=== PATIENT | female | born 1975 | race Caucasian/White ===

== ENCOUNTER → 2017-01-14 | Outpatient (REF) | payer OTHER | LOC: M LAB REF 13:35 | PROVIDERS: ATTEND Nurse Practitioner Family | DX: E03.9 Hypothyroidism, unspecified (principal); E55.9 Vitamin D deficiency, unspecified ==

== ENCOUNTER 2017-03-24 13:19 | Emergency (ER) | payer OTHER ==
[~2017-03-24] VITALS: Ht 160 cm; Wt 74.8 kg
[2017-03-24] MEDS ORDERED: NIFE1TAB PO (13:31)
[2017-03-24] MEDS ORDERED: ZYRT10TA2 PO (13:31)
[2017-03-24] MEDS ORDERED: VITA100066 PO (13:31)
[2017-03-24] MEDS ORDERED: LEVO10VL IM (13:31)
--- NOTE | 2017-03-24 14:29 | REP ---
Chest two views HISTORY: Cough Comparison: None The lungs are clear. The heart is normal in size. The pulmonary vasculature is normal in appearance. The bony structure is intact. IMPRESSION: No acute disease. Signed by Petar Connolly MD 03/24/2017 02:20 P
[2017-03-24 14:31] LABS: BASO % 0.6 % (0.0-1.0); EOS # 0.2 K/mm3 (0.0-0.50); EOS % 1.8 % (0.0-3.0); LARGE UNSTAINED CELL # 0.2 K/mm3 (0.0-0.4); LARGE UNSTAINED CELL % 1.8 % (0.0-4.0); LYMPH # 3.5 K/mm3 (1.5-4.5); LYMPH % 40.7 % (24.0-44.0); MEAN CORPUSCULAR VOLUME 91.4 fl (80.0-96.0); MONO # 0.4 K/mm3 (0.0-0.8); MONO % 4.5 % (0.0-5.0); NEUTROPHILS # 4.4 K/mm3 (1.8-7.7); NEUTROPHILS % 50.6 % (36.0-66.0); PLATELET COUNT, AUTOMATED 251 k/mm3 (150-450); RED CELL DISTRIBUTION WIDTH 12.6 % (11.5-14.5); WHITE BLOOD COUNT 8.7 K/mm3 (4.0-10.0)
[2017-03-24 14:38] LABS: INR 0.94
[2017-03-24 15:07] LABS: ALBUMIN/GLOBULIN RATIO 1.21 (1.00-1.93); ALKALINE PHOSPHATASE 66 U/L (45-117); ALT/SGPT 29 U/L (12-78); ANION GAP 6 MEQ/L (8-16); AST/SGOT 19 U/L (15-37); BILIRUBIN,DIRECT < 0.1 MG/DL (0.0-0.2); BILIRUBIN,TOTAL 0.3 MG/DL (0.2-1.0); BLOOD UREA NITROGEN 15 MG/DL (7-18); CALCIUM LEVEL 8.4 MG/DL (8.5-10.1); CARBON DIOXIDE LEVEL 31 MEQ/L (21-32); CHLORIDE LEVEL 102 MEQ/L (98-107); CREATININE FOR GFR 0.74 MG/DL (0.55-1.02); GLOMERULAR FILTRATION RATE > 60.0 (>58); GLUCOSE, FASTING 85 MG/DL (70-105); POTASSIUM SERUM 3.9 MEQ/L (3.5-5.1); SODIUM LEVEL 139 MEQ/L (136-145); THYROXINE (T4) 10.3 UG/DL (4.5-12.0); TOTAL PROTEIN 7.3 GM/DL (6.4-8.2)
[2017-03-24 15:42] VITALS: BP 119/76
--- NOTE | 2017-03-25 09:17 | ECGEPIP ---
Stationary ECG Study [facility] - ED Test Date: 2017-03-24 Pat Name: ISAAC SHOOK Department: Room: - Gender: F [employer] Level [employer]: : 1975 Requested By: Maco Capellan Order Number: [id number] Reading MD: Klaudia Bales Measurements Intervals [place] Rate: 55 P: 33 IN: 148 QRS: 43 QRSD: 75 T: 3 QT: 416 QTc: 400 Interpretive Statements SINUS BRADYCARDIA WITH SINUS ARRHYTHMIA NSTTW ABNORMALITY Electronically Signed On 03-25-2017 9:17:25 EDT by Klaudia Bales
== END 2017-03-24 15:43 | disposition home or self-care (01) ==
LOC: M ED 15:24
DX: R06.02 Shortness of breath (principal); R07.89 Other chest pain; Z87.891 Personal history of nicotine dependence; Z79.899 Other long term (current) drug therapy

== ENCOUNTER → 2017-11-08 | Outpatient (CLI) | payer OTHER ==
[~2017-11-08] MED LIST: LEVO10VL IM; NIFE1TAB PO; VITA100066 PO; ZYRT10TA2 PO
== END ==
LOC: M LAB 11:52
PROVIDERS: ATTEND Internal Medicine Endocrinology, Diabetes & Metabolism
DX: E03.9 Hypothyroidism, unspecified (principal)

== ENCOUNTER → 2018-02-14 | Outpatient (CLI) | payer OTHER | LOC: M LAB 07:28 | DX: E03.9 Hypothyroidism, unspecified (principal) | CPT/HCPCS: 84443 ==

== ENCOUNTER → 2018-09-23 | Outpatient (CLI) | payer OTHER | LOC: M LAB 07:22 | DX: E03.9 Hypothyroidism, unspecified (principal) | CPT/HCPCS: 84443 ==

== ENCOUNTER → 2020-03-13 | Outpatient (CLI) | payer OTHER ==
[~2020-03-13] MED LIST changes: -NIFE1TAB PO; +NIFE90TA20 PO; +ZYRT10CA5 PO; -ZYRT10TA2 PO
== END ==
LOC: M LABSMTC 11:05
PROVIDERS: ATTEND Family Medicine
DX: Z11.59 Encounter for screening for other viral diseases (principal); Z20.828 Contact with and (suspected) exposure to other viral communicable diseases

== ENCOUNTER → 2020-06-10 | Outpatient (CLI) | payer OTHER | LOC: M LABSMTC 12:20 | PROVIDERS: ATTEND Family Medicine | DX: Z11.59 Encounter for screening for other viral diseases (principal) | CPT/HCPCS: C9803; U0003 ==

== ENCOUNTER → 2020-07-02 | Outpatient (CLI) | payer OTHER ==
[2020-08-31 11:23] LABS: FREE T4 1.09 NG/DL (0.76-1.46); THYROID STIMULATING HORMONE 0.765 uIU/ML (0.358-3.740); TOTAL T3 94.4 NG/DL (60.0-181.0)
== END ==
LOC: M LAB 08:28
PROVIDERS: ATTEND Internal Medicine Endocrinology, Diabetes & Metabolism
DX: E03.9 Hypothyroidism, unspecified (principal)

== ENCOUNTER → 2020-07-16 | Outpatient (REF) | payer OTHER, MEDICAID ==
[2020-09-03 12:03] LABS: BASO # 0.1 10^3/uL (0.0-0.2); BASO % 0.6 % (0.0-1.0); EOS # 0.1 10^3/uL (0.0-0.5); EOS % 1.6 % (0.0-3.0); HEMATOCRIT 40.8 % (36.0-47.0); HEMOGLOBIN 13.5 g/dl (12.0-15.5); LYMPH # 3.1 10^3/uL (1.5-5.0); MEAN CORPUSCULAR HEMOGLOBIN 30.1 pg (27.0-33.0); MEAN CORPUSCULAR HGB CONC 33.1 g/dl (32.0-36.5); MEAN CORPUSCULAR VOLUME 91.1 fl (80.0-96.0); MONO # 0.7 10^3/uL (0.0-0.8); MONO % 8.6 % (0.0-5.0); NEUTROPHILS % 49.9 % (36.0-66.0); PLATELET COUNT, AUTOMATED 279 10^3/uL (150-450); RED BLOOD COUNT 4.48 10^6/uL (4.00-5.40)
[2020-09-03 12:04] LABS: ERYTHROCYTE SEDIMENTATION RATE 7 mm/hr (0-20)
[2020-10-06 09:05] LABS: ALBUMIN 3.8 GM/DL (3.2-5.2); ALT/SGPT 27 U/L (12-78); BILIRUBIN,TOTAL 0.2 MG/DL (0.2-1.0); BLOOD UREA NITROGEN 15 MG/DL (7-18); CALCIUM LEVEL 8.8 MG/DL (8.5-10.1); CARBON DIOXIDE LEVEL 28 MEQ/L (21-32); CHLORIDE LEVEL 105 MEQ/L (98-107); CREATININE FOR GFR 0.73 MG/DL (0.55-1.30); GLOMERULAR FILTRATION RATE > 60.0 (>58); GLUCOSE, FASTING 79 MG/DL (70-100); POTASSIUM SERUM 4.1 MEQ/L (3.5-5.1); SODIUM LEVEL 138 MEQ/L (136-145); TOTAL PROTEIN 7.2 GM/DL (6.4-8.2)
== END ==
LOC: M LAB REF 10:30
PROVIDERS: ATTEND Family Medicine Addiction Medicine
DX: M60.819 Other myositis, unspecified shoulder (principal)

== ENCOUNTER → 2021-01-30 | Outpatient (REF) | payer OTHER, MEDICAID ==
[2021-01-30 16:59] LABS: BASO # 0.1 10^3/uL (0.0-0.2); BASO % 0.7 % (0.0-1.0); EOS # 0.1 10^3/uL (0.0-0.5); EOS % 0.9 % (0.0-3.0); HEMATOCRIT 42.8 % (36.0-47.0); HEMOGLOBIN 13.5 g/dl (12.0-15.5); LYMPH # 3.2 10^3/uL (1.5-5.0); LYMPH % 35.5 % (24.0-44.0); MEAN CORPUSCULAR HEMOGLOBIN 28.8 pg (27.0-33.0); MEAN CORPUSCULAR HGB CONC 31.5 g/dl (32.0-36.5); MEAN CORPUSCULAR VOLUME 91.3 fl (80.0-96.0); MONO # 0.6 10^3/uL (0.0-0.8); MONO % 6.5 % (2.0-8.0); PLATELET COUNT, AUTOMATED 313 10^3/uL (150-450); RED BLOOD COUNT 4.69 10^6/uL (4.00-5.40); WHITE BLOOD COUNT 8.9 10^3/uL (4.0-10.0)
[2021-01-30 17:37] LABS: ERYTHROCYTE SEDIMENTATION RATE 8 mm/hr (0-20)
[2021-01-30 18:09] LABS: ALT/SGPT 46 U/L (12-78); BILIRUBIN,TOTAL 0.2 MG/DL (0.2-1.0); BLOOD UREA NITROGEN 12 MG/DL (7-18); C REACTIVE PROTEIN QUANTITATIV 0.59 MG/DL (0.00-0.30); CALCIUM LEVEL 8.9 MG/DL (8.5-10.1); CARBON DIOXIDE LEVEL 28 MEQ/L (21-32); CHLORIDE LEVEL 105 MEQ/L (98-107); CREATININE FOR GFR 0.78 MG/DL (0.55-1.30); GLOMERULAR FILTRATION RATE > 60.0 (>58); GLUCOSE, FASTING 73 MG/DL (70-100); POTASSIUM SERUM 4.3 MEQ/L (3.5-5.1); SODIUM LEVEL 140 MEQ/L (136-145); THYROID STIMULATING HORMONE 0.717 uIU/ML (0.358-3.740); TOTAL PROTEIN 7.1 GM/DL (6.4-8.2)
== END ==
LOC: M LAB REF 16:22
PROVIDERS: ATTEND Family Medicine Addiction Medicine
DX: M25.50 Pain in unspecified joint (principal); E03.9 Hypothyroidism, unspecified

== ENCOUNTER → 2021-03-24 | Outpatient (REF) | payer OTHER, MEDICAID | LOC: M LAB REF 11:34 | PROVIDERS: ATTEND Family Medicine Addiction Medicine | DX: Z12.4 Encounter for screening for malignant neoplasm of cervix (principal) ==

== ENCOUNTER → 2021-03-24 | Outpatient (REF) | payer OTHER, MEDICAID ==
[2021-03-24 17:49] LABS: C REACTIVE PROTEIN QUANTITATIV < 0.30 MG/DL (0.00-0.30); RHEUMATOID FACTOR QUANT < 10.0 IU/ML (<15.0)
[2021-03-26 13:08] LABS: ANTINUCLEAR ANTIBODIES DIRECT Negative (Negative)
== END ==
LOC: M LAB REF 16:16
PROVIDERS: ATTEND Family Medicine Addiction Medicine
DX: M25.50 Pain in unspecified joint (principal)

== ENCOUNTER → 2021-05-20 | Outpatient (CLI) | payer MEDICAID, OTHER ==
--- NOTE | 2021-05-20 10:48 | REP ---
INDICATION: PAIN IN RIGHT KNEE COMPARISON: None TECHNIQUE: Five views FINDINGS: There is slight tricompartmental marginal osteophytosis with mild medial compartmental narrowing. There is no acute fracture, dislocation, or subluxation. IMPRESSION: Early degenerative changes as described above. <Electronically signed by Felix Arteaga > 05/20/21 1040
== END ==
LOC: M RAD 10:01
PROVIDERS: ATTEND Family Medicine Addiction Medicine
DX: M25.561 Pain in right knee (principal)

== ENCOUNTER 2022-06-09 06:10 | Observation (INO) | payer OTHER ==
[~2022-06-09] VITALS: Ht 160 cm; Wt 71.2 kg
[~2022-06-09 06:10] MED LIST changes: +ALBU2.5V10 INH; +CETI-24; +DRIS50003 PO; +LIOT5TAB6; +PARO20TA3; +SYNT125T; +WELLTAB40; +ceFAZolin SOD 2 GM in IV 1 EA IV ONE
[2022-06-09] MEDS ORDERED: LR 1,000 ML IV SCH ×2 (06:45→11:55)
[2022-06-09] MEDS ORDERED: ROCURONIUM BROMIDE 50 MG/5 ML VIAL As Ordered ONE ×3 (07:13→10:42)
[2022-06-09] MEDS ORDERED: BUPIVACAINE LIPOSOME/PF 1.3% 20ML VIAL (13.3MG/ML)(EXPAREL) As Ordered ONE (07:13)
[2022-06-09] MEDS ORDERED: fentaNYL 250 MCG/5 ML INJECTION As Ordered ONE (07:13)
[2022-06-09] MEDS ORDERED: LIDOCAINE 2% INJ 100 MG/5 ML SYRINGE As Ordered ONE (07:13)
[2022-06-09] MEDS ORDERED: MIDAZOLAM INJ 2MG/2ML VIAL (J2250 PER 1MG) As Ordered ONE (07:13)
[2022-06-09] MEDS ORDERED: propofoL 200 MG/20 ML VIAL As Ordered ONE (07:13)
[2022-06-09] MEDS ORDERED: BUPIVACAINE HCL 0.25% 10ML VIAL As Ordered ONE (07:13)
[2022-06-09] MEDS ORDERED: GENTAMICIN SULF 80MG/2ML VIAL As Ordered ONE (07:13)
[2022-06-09] MEDS ORDERED: DESFLURANE 240 ML INHALANT As Ordered ONE (09:01)
[2022-06-09] MEDS ORDERED: LACRILUBE (AKWA TEARS) OPHTH OINT 3.5 GM As Ordered ONE (09:36)
[2022-06-09] MEDS ORDERED: ONDANSETRON 4MG 2ML VIAL As Ordered ONE (09:39)
[2022-06-09] MEDS ORDERED: ACETAMINOPHEN 1000MG 100ML IV BTL (OFIRMEV) (J0131 PER 10MG) As Ordered ONE (09:39)
[2022-06-09] MEDS ORDERED: dexameTHASONE 4 MG/ML 1ML VIAL (J1100 PER 1MG) As Ordered ONE (09:39)
[2022-06-09] MEDS ORDERED: KETOROLAC 60MG 2ML VIAL As Ordered ONE (09:39)
[2022-06-09] MEDS ORDERED: SUGAMMADEX SODIUM 500 MG/5 ML VIAL (BRIDION) As Ordered ONE (09:40)
[2022-06-09] MEDS ORDERED: HYDROmorphone HCL 2MG/ML 1ML VIAL As Ordered ONE (10:43)
[2022-06-09] MEDS ORDERED: METOCLOPRAMIDE INJ 10MG/2ML VIAL (J2765 PER 1) As Ordered ONE (10:56)
[2022-06-09] MEDS ORDERED: ONDANSETRON 4MG 2ML VIAL IV PRN (11:55)
[2022-06-09] MEDS ORDERED: oxyCODONE 5MG TAB PO PRN (11:55)
[2022-06-09] MEDS ORDERED: fentaNYL 100 MCG/2 ML INJECTION IV PRN (11:55)
[2022-06-09 13:25] VITALS: BP 119/69
[2022-06-09] MEDS: LR 1,000 ML IV SCH (13:45)
[2022-06-09 14:30] VITALS: BP 119/70
[2022-06-09 15:30] VITALS: BP 120/67
[2022-06-09 16:07] LABS: HEMATOCRIT 40.4 % (36.0-47.0); HEMOGLOBIN 13.5 g/dl (12.0-15.5); MEAN CORPUSCULAR HEMOGLOBIN 31.3 pg (27.0-33.0); MEAN CORPUSCULAR HGB CONC 33.4 g/dl (32.0-36.5); MEAN CORPUSCULAR VOLUME 93.5 fl (80.0-96.0); PLATELET COUNT, AUTOMATED 213 10^3/uL (150-450); RED BLOOD COUNT 4.32 10^6/uL (4.00-5.40); WHITE BLOOD COUNT 13.7 10^3/uL (4.0-10.0)
[2022-06-09 16:30] VITALS: BP 119/72
[2022-06-09] MEDS: ceFAZolin SOD 1 GM in D5W MINI-BAG PLUS 50 ML IV SCH ×2 (16:47→22:27)
[2022-06-09] MEDS: PERCOCET 5MG/325MG TAB PO PRN ×2 (16:48→21:22)
[2022-06-09] MEDS: ONDANSETRON 4MG 2ML VIAL IV PRN ×2 (16:51→21:22)
[2022-06-09] MEDS: CETIRIZINE (ZyrTEC) 10 MG TAB PO SCH (17:04)
[2022-06-09 18:30] VITALS: BP 108/73
[2022-06-09 22:30] VITALS: BP 111/75
[2022-06-10] MEDS: PERCOCET 5MG/325MG TAB PO PRN ×5 (01:22→21:23)
[2022-06-10] MEDS: ONDANSETRON 4MG 2ML VIAL IV PRN ×5 (01:23→21:24)
[2022-06-10] MEDS: LR 1,000 ML IV SCH (02:03)
[2022-06-10] MEDS: MORPHINE 4 MG/ML 1ML VIAL/SYRINGE IV PRN ×2 (02:08→06:34)
[2022-06-10 02:30] VITALS: BP 116/72
[2022-06-10] MEDS: LEVOTHYROXINE 125MCG TABLET (0.125MG) PO SCH (05:27)
[2022-06-10] MEDS: LIOTHYRONINE 5 MCG PO SCH (05:28)
[2022-06-10 06:30] VITALS: BP 114/85
[2022-06-10] MEDS: ceFAZolin SOD 1 GM in D5W MINI-BAG PLUS 50 ML IV SCH ×3 (06:32→22:27)
[2022-06-10] MEDS ORDERED: VITAMIN D 50,000 UNITS CAPSULE (ERGOCALCIFEROL 1.25MG) PO SCH (09:00)
[2022-06-10 09:14] LABS: HEMATOCRIT 34.3 % (36.0-47.0); MEAN CORPUSCULAR HGB CONC 32.7 g/dl (32.0-36.5); PLATELET COUNT, AUTOMATED 287 10^3/uL (150-450); RED BLOOD COUNT 3.61 10^6/uL (4.00-5.40)
[2022-06-10 09:22] LABS: HEMOGLOBIN 11.2 g/dl (12.0-15.5)
[2022-06-10] MEDS: PARoxetine 20MG TABLET PO SCH (09:53)
[2022-06-10] MEDS: buPROPion **XL** TABLET 150MG (WELLBUTRIN XL) PO SCH (09:53)
[2022-06-10] MEDS: CETIRIZINE (ZyrTEC) 10 MG TAB PO SCH (09:53)
[2022-06-10] MEDS: ACETAMINOPHEN TAB 650MG DOSE (2X325MG) PO PRN ×2 (09:53→19:54)
[2022-06-10 10:30] VITALS: BP 116/86
[2022-06-10 14:00] VITALS: BP 122/68
[2022-06-10 20:09] VITALS: BP 117/76
[2022-06-10] MEDS: traMADol 50 MG TAB PO PRN (23:20)
[2022-06-11] MEDS: ACETAMINOPHEN TAB 650MG DOSE (2X325MG) PO PRN ×2 (02:59→14:49)
[2022-06-11] MEDS: ONDANSETRON 4MG 2ML VIAL IV PRN ×4 (03:36→22:35)
[2022-06-11] MEDS: PERCOCET 5MG/325MG TAB PO PRN ×4 (03:36→22:34)
[2022-06-11] MEDS: LEVOTHYROXINE 125MCG TABLET (0.125MG) PO SCH (05:11)
[2022-06-11] MEDS: LIOTHYRONINE 5 MCG PO SCH (05:12)
[2022-06-11 05:23] VITALS: BP 148/90
[2022-06-11 05:42] VITALS: BP 124/83
[2022-06-11] MEDS: ceFAZolin SOD 1 GM in D5W MINI-BAG PLUS 50 ML IV SCH ×3 (06:34→22:33)
[2022-06-11] MEDS: buPROPion **XL** TABLET 150MG (WELLBUTRIN XL) PO SCH (08:31)
[2022-06-11] MEDS: PARoxetine 20MG TABLET PO SCH (08:31)
[2022-06-11] MEDS: CETIRIZINE (ZyrTEC) 10 MG TAB PO SCH (08:35)
[2022-06-11 10:59] LABS: ALBUMIN 2.8 GM/DL (3.2-5.2); ALT/SGPT 11 U/L (12-78); BILIRUBIN,TOTAL 0.3 MG/DL (0.2-1.0); BLOOD UREA NITROGEN 18 MG/DL (7-18); CALCIUM LEVEL 8.7 MG/DL (8.5-10.1); CARBON DIOXIDE LEVEL 30 MEQ/L (21-32); CHLORIDE LEVEL 104 MEQ/L (98-107); GLOMERULAR FILTRATION RATE > 60.0 (>58); GLUCOSE, FASTING 98 MG/DL (70-100); POTASSIUM SERUM 3.9 MEQ/L (3.5-5.1); SODIUM LEVEL 137 MEQ/L (136-145); TOTAL PROTEIN 5.6 GM/DL (6.4-8.2)
[2022-06-11] MEDS: traMADol 50 MG TAB PO PRN ×2 (11:56→18:13)
[2022-06-11] MEDS: FUROSEMIDE 10MG PER 1/2 TABLET PO SCH (12:52)
[2022-06-11 14:00] VITALS: BP 125/75
[2022-06-11 21:54] VITALS: BP 119/61
[2022-06-12] MEDS: traMADol 50 MG TAB PO PRN (03:06)
[2022-06-12] MEDS: PERCOCET 5MG/325MG TAB PO PRN ×2 (03:53→08:29)
[2022-06-12] MEDS: ONDANSETRON 4MG 2ML VIAL IV PRN ×2 (03:53→08:43)
[2022-06-12] MEDS: LEVOTHYROXINE 125MCG TABLET (0.125MG) PO SCH (05:41)
[2022-06-12] MEDS: LIOTHYRONINE 5 MCG PO SCH (05:42)
[2022-06-12 06:00] VITALS: BP 110/64
[2022-06-12] MEDS: ACETAMINOPHEN TAB 650MG DOSE (2X325MG) PO PRN (07:05)
[2022-06-12] MEDS: buPROPion **XL** TABLET 150MG (WELLBUTRIN XL) PO SCH (08:28)
[2022-06-12] MEDS: CETIRIZINE (ZyrTEC) 10 MG TAB PO SCH (08:29)
[2022-06-12] MEDS: ceFAZolin SOD 1 GM in D5W MINI-BAG PLUS 50 ML IV SCH (08:29)
[2022-06-12] MEDS: PARoxetine 20MG TABLET PO SCH (08:29)
[2022-06-12] MEDS: FUROSEMIDE 10MG PER 1/2 TABLET PO SCH (08:37)
[2022-06-12] MEDS ORDERED: TRAM50TA2 PO (09:53)
== END 2022-06-12 11:21 | disposition home or self-care (01) ==
LOC: M SDC 06:10 → M MSPAV 06:11
PROVIDERS: ADMIT Plastic Surgery Surgery of the Hand; ATTEND Plastic Surgery Surgery of the Hand
DX: M79.3 Panniculitis, unspecified (principal); M62.08 Separation of muscle (nontraumatic), other site; G89.18 Other acute postprocedural pain; R60.0 Localized edema; E03.9 Hypothyroidism, unspecified
CPT/HCPCS: 15830; 15847; 36415; 80053; 85027; 88300; 96361; 96365; 96366; 96375; 96376; C9290; J0131; J0690; J1100; J1170; J1580; J1885; J2250; J2270; J2405; J2765; J3010

== ENCOUNTER → 2025-01-08 | Outpatient (CLI) | payer OTHER ==
[~2025-01-08] MED LIST changes: -NIFE90TA20 PO; +NIFE90TA46 PO; +OXYC1TAB23 PO; +TRAM50TA2 PO; -ceFAZolin SOD 2 GM in IV 1 EA IV ONE
== END ==
LOC: M WHC 12:37
PROVIDERS: ATTEND Nurse Practitioner Primary Care
DX: Z12.31 Encounter for screening mammogram for malignant neoplasm of breast (principal); R92.313 Mammographic fatty tissue density, bilateral breasts

== ENCOUNTER → 2025-11-06 | Outpatient (CLI) | payer OTHER ==
[2025-11-06 08:08] LABS: BASO # 0.1 10^3/uL (0.0-0.2); BASO % 0.8 % (0.0-1.0); EOS # 0.1 10^3/uL (0.0-0.5); EOS % 1.8 % (0.0-3.0); LYMPH # 3.0 10^3/uL (1.5-5.0); LYMPH % 41.4 % (24.0-44.0); MONO # 0.4 10^3/uL (0.0-0.8); MONO % 5.1 % (2.0-8.0); NEUTROPHILS # 3.7 10^3/uL (1.5-8.5); NEUTROPHILS % 50.8 % (36.0-66.0); PLATELET COUNT, AUTOMATED 327 10^3/uL (150-450)
[2025-11-06 08:42] LABS: ALT/SGPT 20 U/L (7.0-40); AST/SGOT 23 U/L (<34); C REACTIVE PROTEIN QUANTITATIV < 0.50 MG/DL (<1.0); CALCIUM LEVEL 9.2 MG/DL (8.5-10.1); CARBON DIOXIDE LEVEL 27 MMOL/L (20-31); CHLORIDE LEVEL 105 MMOL/L (98-107); CHOLESTEROL LEVEL 260 MG/DL (<200); CHOLESTEROL RISK RATIO 3.98 (<5); CREATININE FOR GFR 0.67 MG/DL (0.55-1.30); GLOMERULAR FILTRATION RATE > 90.0 (>51); IRON (FE) 82 UG/DL (50-170); LDL CHOLESTEROL 179.1 MG/DL (<100); MAGNESIUM LEVEL 1.6 MG/DL (1.8-2.4); NON-HDL-C 194.7 MG/DL; PERCENT SATURATION 25.5 % (13.2-45.0); POTASSIUM SERUM 4.2 MMOL/L (3.5-5.1); RHEUMATOID FACTOR QUANT < 3.5 IU/ML (<14); SODIUM LEVEL 140 MMOL/L (136-145); TRIGLYCERIDES LEVEL 78 MG/DL (<150)
[2025-11-06 08:43] LABS: FREE T4 1.16 NG/DL (0.89-1.76); VITAMIN B12 LEVEL 334 PG/ML (211-911)
[2025-11-06 08:46] LABS: THYROID PEROXIDASE ANTIBODY 233 U/ML (<60.0)
[2025-11-06 09:37] LABS: ESTIMATED AVERAGE GLUCOSE 108.0 MG/DL (60-110)
[2025-11-07 13:17] LABS: SSA SJOGRENS A <1.0 NEG AI (<1.0 NEG); SSB SJOGRENS B <1.0 NEG AI (<1.0 NEG)
[2025-11-08 07:52] LABS: THRYOGLOBULIN ANTIBODIES (ATA) 13 IU/mL (< or = 1); THYROGLOBULIN QUANTITATIVE 28.2 ng/mL (2.8-40.9)
== END ==
LOC: M LAB 07:09
PROVIDERS: ATTEND Family Medicine
DX: E06.3 Autoimmune thyroiditis (principal); Z13.29 Encounter for screening for other suspected endocrine disorder; Z13.220 Encounter for screening for lipoid disorders; R53.83 Other fatigue; Z13.0 Encounter for screening for diseases of the blood and blood-forming organs and certain disorders involving the immune mechanism

== ENCOUNTER → 2025-11-08 | Outpatient (CLI) | payer OTHER | LOC: M RAD 09:15 | PROVIDERS: ATTEND Physician Assistant | DX: R10.84 Generalized abdominal pain (principal) ==